=== PATIENT | female | born 1990 | race Caucasian/White ===

== ENCOUNTER → 2021-05-30 | Emergency (ER) | payer OTHER ==
[~2021-05-30] VITALS: Ht 160 cm; Wt 61.7 kg
[~2021-05-30] MED LIST: AUGMENTIN 875-1 EACH PO
== END ==
LOC: ER 14:09
DX: S61.532A Puncture wound without foreign body of left wrist, initial encounter (principal); W46.1XXA Contact with contaminated hypodermic needle, initial encounter; Y99.0 Civilian activity done for income or pay
CPT/HCPCS: 99282